=== PATIENT | female | born 1980 | race Caucasian/White ===

== ENCOUNTER 2017-10-31 09:30 | Emergency (ER) | payer OTHER ==
[2017-10-31 09:35] VITALS: BP 109/59; PULSE 70; TEMP 98.4; BMI 33.5
--- NOTE | 2017-10-31 10:03 | PDOC ---
History of Present Illness - General Chief Complaint: Burn Stated Complaint: BURN Time Seen by Provider: 10/31/17 09:59 History Source: Patient Exam Limitations: No Limitations - History of Present Illness Initial Comments: 10/31/17 10:45 Patient is a 37-year-old female who presents emergency department after burning her right hand. Patient states that she was holding a handy with the warm food when she stumbled and some of the liquid fell out of a hot handy. She tried to grab the hot food with her hand and ended up burning it. Patient states that she put cold water on the burn immediately. She notes blisters to her fifth fourth and third fingers of the right hand. Patient is right-hand dominant. Denies fevers, chills, shortness of breath, nausea, vomiting and diarrhea. Past History - Travel Traveled outside of the country in the last 30 days: No Close contact w/someone who was outside of country & ill: No - Past Medical History Allergies/Adverse Reactions: Allergies Allergy/AdvReac Type Severity Reaction Status Date / Time Penicillins Allergy Verified 10/31/17 09:31 Home Medications: Ambulatory Orders Ibuprofen 800 mg PO TID #30 tablet 10/31/17 Mupirocin Calcium [Mupirocin] 1 applic TP BID #60 g 10/31/17 Oxycodone HCl/Acetaminophen [Percocet 5-325 mg Tablet] 1 tab PO Q8H #10 tablet MDD 3 10/31/17 COPD: No - Suicide/Smoking/Psychosocial Hx Smoking History: Never smoked Have you smoked in the past 12 months: No Information on smoking cessation initiated: No Hx Alcohol Use: No Drug/Substance Use Hx: No Substance Use Type: None Review of Systems - Review of Systems Able to Perform ROS?: Yes Comments:: 10/31/17 10:02 CONSTITUTIONAL: Absent: fever, chills, diaphoresis, generalized weakness, malaise, loss of appetite HEENT: Absent: rhinorrhea, nasal congestion, throat pain, throat swelling, difficulty swallowing, mouth swelling, ear pain, eye pain, visual Changes CARDIOVASCULAR: Absent: chest pain, loss of consciousness, palpitations, irregular heart rate, peripheral edema RESPIRATORY: Absent: cough, shortness of breath, dyspnea with exertion, orthopnea, wheezing, stridor, hemoptysis GASTROINTESTINAL: Absent: abdominal pain, abdominal distension, nausea, vomiting, diarrhea, constipation, melena, hematochezia GENITOURINARY: Absent: dysuria, frequency, urgency, hesitancy, hematuria, flank pain, genital pain MUSCULOSKELETAL: Absent: myalgia, arthralgia, joint swelling SKIN: Present: burn to hands Absent: rash, itching, pallor HEMATOLOGIC/IMMUNOLOGIC: Absent: easy bleeding, easy bruising, lymphadenopathy, frequent infections ENDOCRINE: Absent: unexplained weight gain, unexplained weight loss, heat intolerance, cold intolerance NEUROLOGIC: Absent: headache, focal weakness or paresthesias, dizziness, unsteady gait, seizure, mental status changes, bladder or bowel incontinence PSYCHIATRIC: Absent: anxiety, depression, suicidal or homicidal ideation, hallucinations. Is the patient limited Japanese proficient: No *Physical Exam - Vital Signs Last Vital Signs Temp Pulse Resp BP Pulse Ox 98.4 F 70 18 109/59 100 10/31/17 09:31 10/31/17 09:31 10/31/17 09:31 10/31/17 09:31 10/31/17 09:31 - Physical Exam Comments: 10/31/17 10:02 GENERAL: Well developed, well nourished. Awake and alert. No acute distress. EXTREMITIES No cyanosis. No clubbing. No edema. No calf tenderness. SKIN: Partial thickness burn to R 5th-2nd digits. Blisters present on 5th-3rd fingers medially, non-circumferential. 1st degree burn to the distal half of the R palm. Other skin is Warm and dry. Normal capillary refill. No rashes. No jaundice. NEUROLOGICAL: Alert, awake, appropriate. Cranial nerves 2-12 intact. No deficits to light touch and temperature in face, upper extremities and lower extremities. No motor deficits in the in face, upper extremities and lower extremities. Normoreflexic in the upper and lower extremities. Normal speech. Toes are down- going bilaterally. Gait is normal without ataxia. PSYCHIATRIC: Cooperative. Good eye contact. Appropriate mood and affect. 10/31/17 19:46 Medical Decision Making - Medical Decision Making 10/31/17 11:05 Pt. is a 37 yo F who presents to the ED after burning her fifth fourth and third fingers of the right hand (partial thickness) on the palmar side. Burn placed in cool water and ibuprofen given with some comfort provided. Silvadine cream applied. Tetanus shot is UTD. The distal palm with first degree burn. Pt able to fully flex and extend all affected fingers. Pt. to be dc home at this time and referred to both her PCP and dermatology. Strict return precautions given. Pt understands all dc instructions and all questions were answered. *DC/Admit/Observation/Transfer Diagnosis at time of Disposition: Burn of right hand including fingers Qualifiers: Encounter type: initial encounter Burn degree: partial thickness (2nd degree) Qualified Code(s): T23.201A - Burn of second degree of right hand, unspecified site, initial encounter - Discharge Dispostion Disposition: HOME Condition at time of disposition: Stable Decision to Admit order: No - Prescriptions Prescriptions: Ibuprofen 800 mg PO TID #30 tablet Mupirocin Calcium [Mupirocin] 1 applic TP BID #60 g Oxycodone HCl/Acetaminophen [Percocet 5-325 mg Tablet] 1 tab PO Q8H #10 tablet MDD 3 - Referrals Referrals: Shailesh Temple [Primary Care Provider] - - Patient Instructions Printed Discharge Instructions: DI for [facility] Additional Instructions: You burned your hand today. Please use the mupirocin on your hand twice a day until your hand heals. Use non -stick dressing over the blistered areas. You may ice the area as long as the hand does not directly touch the ice. You may take 800mg of motrin every 8 hours as needed for pain. You may take percocet every 8 hours as needed for break through pain. A dermatology referral has been provided for you, Return to the ED if you have worsening pain, signs of infection including green/ yellow discharge or have any changes in your symptoms. - Post Discharge Activity
[2017-10-31] MEDS ORDERED: SILVER SULFADIAZINE 1% TOP CREAM 50 GM JAR TP ONE ×2 (10:46→10:57)
[2017-10-31] MEDS ORDERED: IBUPROFEN 400 MG TABLET (FP) PO ONE ×2 (11:05→11:08)
== END 2017-10-31 11:31 | disposition home or self-care (01) ==
LOC: JERFT 09:30
PROC: 2W2EX4Z Dressing of Right Hand using Bandage (ICD-10-PCS; principal; 2017-10-31)
DX: T23.201A Burn of second degree of right hand, unspecified site, initial encounter (principal); X10.1XXA Contact with hot food, initial encounter; Y93.89 Activity, other specified; Y92.9 Unspecified place or not applicable
CPT/HCPCS: 99281-25